=== PATIENT | female | born 1960 | race African-American/Black ===

== ENCOUNTER 2016-07-18 12:03 | Emergency (ER) | payer MEDICAID ==
[~2016-07-18] VITALS: Ht 160 cm; Wt 78.0 kg
[2016-07-18] MEDS ORDERED: TRIA1CAP6 PO (12:05)
[2016-07-18] MEDS ORDERED: METHIMAZOLE (12:05)
[2016-07-18] MEDS ORDERED: MAGNESIUM/ALUMINUM HYDROXIDE/SIMETHICONE 30ML UDC PO STA (12:38)
[2016-07-18] MEDS ORDERED: ONDANSETRON HCL 4MG/2ML VIAL IV STA (12:38)
[2016-07-18] MEDS ORDERED: FAMOTIDINE 20MG/2ML VIAL IV STA (12:38)
[2016-07-18] MEDS ORDERED: VISCOUS LIDOCAINE 2% 15 ML UDC PO STA (12:38)
[2016-07-18 13:25] LABS: BASOPHILS % 0.1 % (0.0-2.0); EOSINOPHILS % 0.3 % (0.0-5.0); HEMATOCRIT. 47.2 % (36.0-48.0); HEMOGLOBIN. 16.1 g/dL (12.0-16.0); LYMPHOCYTES % 8.2 % (20.0-50.0); MEAN CORPUSCULAR HEMOGLOBIN 28.1 pg (28.0-32.0); MEAN CORPUSCULAR HGB CONC 34.1 g/dL (31.0-37.0); MEAN CORPUSCULAR VOLUME 82.5 fL (81.0-99.0); MEAN PLATELET VOLUME 8.3 fl (7.4-10.4); MONOCYTES % 2.6 % (2.0-8.0); NEUTROPHILS % 88.8 % (40.0-76.0); PLATELET 180 x1000/uL (130-400); RED BLOOD CELL COUNT 5.72 mill/uL (4.2-5.4); RED CELL DISTRIBUTION WIDTH 13.3 % (11.6-14.6); WHITE BLOOD COUNT 11.5 x1000/uL (4.5-11.0)
[2016-07-18 13:34] LABS: HCG SCREEN NEGATIVE
[2016-07-18 13:35] LABS: ALANINE AMINOTRANSFERASE 17 IU/L (13-61); ALBUMIN 4.6 g/dL (3.4-5.0); ANION GAP 16; CALCIUM 10.5 mg/dL (8.5-10.1); CARBON DIOXIDE 27 mEq/L (21-32); CHLORIDE 102 mEq/L (98-107); INDEX HEMOLYSI 1 (1-3); INDEX ICTERIC 1 (1-4); INDEX LIPEMIC 1 (1-3); LIPASE 105 IU/L (73-393); UREA NITROGEN BLOOD 25 mg/dL (7-21); eGFR 36 mL/min (>60)
[2016-07-18 15:22] VITALS: BP 148/85
== END 2016-07-18 15:25 | disposition home or self-care (01) ==
LOC: ER 14:33
DX: R10.13 Epigastric pain (principal); R53.1 Weakness; M54.6 Pain in thoracic spine; I10 Essential (primary) hypertension; N27.0 Small kidney, unilateral; K76.0 Fatty (change of) liver, not elsewhere classified; E05.00 Thyrotoxicosis with diffuse goiter without thyrotoxic crisis or storm; Z98.890 Other specified postprocedural states
CPT/HCPCS: 36415; 71010; 76705; 80053; 83690; 84703; 85025; 93005; 96374; 96375; 99285; J2405; J3490; Z7610